=== PATIENT | male | born 1995 | race Two or more races ===

== ENCOUNTER 2019-06-22 18:01 | Emergency (ER) | payer MEDICAID, OTHER ==
[~2019-06-22] VITALS: Ht 170.2 cm; Wt 63.6 kg
--- NOTE | 2019-06-22 18:44 | NUR ---
PT WAITING PATIENTLY FOR MD NO ACUTE DISTRESS UPDATED POC
--- NOTE | 2019-06-22 19:08 | NUR ---
PT LYING ON BACK ON GURNEY, ALL VSS BUT C/O PF PAIN 10/10 TO THE THOART . PT ABLE TO SWALLOW AND SATS 98 % ROOM AIR C/O SORE THOART FOR ABOUT 5-6 DAYS.
[2019-06-22] MEDS ORDERED: dexamethasone sod phosphate 10mg/ml inj IV STA (19:28)
[2019-06-22] MEDS ORDERED: normal saline 1000ML IV soln IV ONE (19:30)
[2019-06-22] MEDS ORDERED: vancomycin/NS 1 GM ADD-VANTAGE 250 ML IV ONE (19:30)
[2019-06-22] MEDS ORDERED: CefTRIAXone 2gm/D5W 50ml 50 ML IV ONE (19:30)
[2019-06-22] MEDS ORDERED: ketorolac trometh. 30mg/ml inj. IV ONE (19:40)
[2019-06-22 19:56] LABS: BASOPHILS % (AUTO) 0.1 % (0-1); EOSINOPHILS % (AUTO) 0.1 % (0-6); HEMATOCRIT 43.1 % (42.0-52.0); HEMOGLOBIN 14.6 g/dl (14.0-17.9); LYMPHOCYTES # (AUTO) 1.3 X10'3 (1.1-4.8); LYMPHOCYTES % (AUTO) 8.4 % (21-51); MEAN CORPUSCULAR HEMOGLOBIN 30.3 PG (27.0-31.0); MEAN CORPUSCULAR HGB CONC 33.9 g/dL (33.0-36.5); MEAN CORPUSCULAR VOLUME 89.3 FL (78-98); MEAN PLATELET VOLUME 7.3 FL (7.4-10.4); MONOCYTES # (AUTO) 0.9 X10'3 (0-0.9); NEUTROPHILS % (AUTO) 85.4 % (42-75); PLATELET COUNT 284 X10'3 (140-440); RED BLOOD COUNT 4.82 X10'6 (4.70-6.10); RED CELL DISTRIBUTION WIDTH 13.4 % (11.5-14.5); WHITE BLOOD COUNT 15.2 X10'3 (4.5-11.0)
--- NOTE | 2019-06-22 20:07 | NUR ---
TEMP AT 102.3 MD AWARE OF TEMP NO NEW ORDERS GIVEN XRAY COMPLETE
[2019-06-22 20:16] LABS: ALANINE AMINOTRANSFERASE 23 U/L (12-78); ALBUMIN/GLOBULIN RATIO 0.6 (1.1-1.5); ALKALINE PHOSPHATASE 89 IU/L (46-116); ANION GAP 7 (8-16); ASPARTATE AMINO TRANSFERASE 13 U/L (10-37); BILIRUBIN,TOTAL 0.5 MG/DL (0.1-1.0); BLOOD UREA NITROGEN 10 MG/DL (7-18); BUN/CREATININE RATIO 10.3 (5.4-32.0); CALCIUM 8.9 MG/DL (8.5-10.1); CHLORIDE 100 MMOL/L (99-107); CREATININE 0.97 MG/DL (0.60-1.10); GLUCOSE 116 MG/DL (70-104); MAGNESIUM 2.1 MG/DL (1.5-2.4); POTASSIUM 3.7 MMOL/L (3.5-5.1); SODIUM 136 MMOL/L (135-145); TOTAL CARBON DIOXIDE 28.7 MMOL/L (24-32); TOTAL PROTEIN 8.1 G/DL (6.4-8.2); eGFR > 90 ML/MIN
[2019-06-22] MEDS ORDERED: iohexol 300mg/ml 100ml inj. ONE (20:36)
[2019-06-22] MEDS ORDERED: morphine 4 MG/ML inj SYRINge IV ONE (22:05)
[2019-06-22] MEDS ORDERED: ondansetron/PF 4mg/2ml inj IV ONE (22:05)
--- NOTE | 2019-06-22 22:18 | NUR ---
DR MOLINA TO BEDSIDE WITH PREET FLORES TO TAKE A SPECIMAN OF THE PUSS IN THE THOART O2 AT STAND BY SUCTION IN PLACE
--- NOTE | 2019-06-22 22:38 | NUR ---
PT UPRIGHT IN BED USING SUCTION TO ORAL AIRWAY TO KEEP CLEAR FROM SECREATIONS. SUCTIONING BLOOD TINGED SPUTUM FROM AIRWAY
--- NOTE | 2019-06-23 00:54 | NUR ---
PATIENT SLEEPING PEACFULLY. NO RESP DISTRESS NOTED . AWAITING TRANSFER
[2019-06-23] MEDS ORDERED: NO HOME MEDS (00:57)
[2019-06-23 04:51] VITALS: BP 116/67
== END 2019-06-23 04:57 | disposition short-term general hospital (02) ==
LOC: ER 18:03
DX: J39.1 Other abscess of pharynx (principal); J36 Peritonsillar abscess
CPT/HCPCS: 36415; 42700; 70360; 70491; 71045; 80053; 83605; 83735; 84145; 85025; 85610; 87040; 87880; 96365; 96366; 96368; 96375; 99285; J0696; J1100; J1885; J2270; J2405; J3370; J7030; Q9967